=== PATIENT | female | born 1985 | race African-American/Black ===

== ENCOUNTER 2017-06-23 18:12 | Inpatient (IN) | payer MEDICAID ==
[~2017-06-23] VITALS: Ht 162.6 cm; Wt 83.0 kg
[2017-06-23 19:17] LABS: CLARITY URINE CLOUDY (CLEAR); COLOR URINE DARK YELLOW (YELLOW); GLUCOSE URINE NEGATIVE (NEGATIVE); KETONES URINE NEGATIVE (NEGATIVE); LEUKOCYTE ESTERASE URINE 1+ (NEGATIVE); NITRITE URINE NEGATIVE (NEGATIVE); OCCULT BLOOD URINE 2+ (NEGATIVE); PH URINE 6.5 (4.5-8.0); PROTEIN URINE 1+ (NEGATIVE); SPECIFIC GRAVITY URINE 1.024 (1.005-1.030)
[2017-06-23 19:37] LABS: BASOPHILS % 0.3 % (0.0-2.0); EOSINOPHILS % 0.5 % (0.0-5.0); HEMATOCRIT. 32.5 % (36.0-48.0); HEMOGLOBIN. 11.1 g/dL (12.0-16.0); LYMPHOCYTES % 22.7 % (20.0-50.0); MEAN CORPUSCULAR HEMOGLOBIN 30.2 pg (28.0-32.0); MONOCYTES % 11.5 % (2.0-8.0); PLATELET 165 x1000/uL (130-400); RED CELL DISTRIBUTION WIDTH 13.5 % (11.6-14.6)
[2017-06-23 19:41] LABS: D-DIMER 2.89 mg/L FEU (<0.50); PARTIAL THROMBOPLASTIN TIME 27.5 sec (23.4-31.0)
[2017-06-23 19:48] LABS: CARBON DIOXIDE 25 mEq/L (21-32); CHLORIDE 107 mEq/L (98-107)
[2017-06-23 19:57] LABS: CLARITY URINE CLEAR (CLEAR); COLOR URINE YELLOW (YELLOW); GLUCOSE URINE NEGATIVE (NEGATIVE); KETONES URINE NEGATIVE (NEGATIVE); LEUKOCYTE ESTERASE URINE NEGATIVE (NEGATIVE); NITRITE URINE NEGATIVE (NEGATIVE); OCCULT BLOOD URINE NEGATIVE (NEGATIVE); PH URINE 6.5 (4.5-8.0); PROTEIN URINE 1+ (NEGATIVE); SPECIFIC GRAVITY URINE 1.017 (1.005-1.030)
[2017-06-23 20:10] LABS: *AMPHETAMINES SCREEN URINE NEGATIVE (NEGATIVE); *BARBITURATES SCREEN URINE NEGATIVE (NEGATIVE); *BENZODIAZEPINES SCREEN URINE NEGATIVE (NEGATIVE); *COCAINE SCREEN URINE NEGATIVE (NEGATIVE); CANNABINOID URINE SCREEN NEGATIVE (NEGATIVE); METHADONE URINE SCREEN NEGATIVE (NEGATIVE); OPIATES URINE SCREEN NEGATIVE (NEGATIVE); PHENCYCLIDINE URINE SCREEN NEGATIVE (NEGATIVE)
[2017-06-23] MEDS ORDERED: NALOXONE HCL 0.4 MG/ML 1ML VIAL IM PRN (20:30)
[2017-06-23] MEDS ORDERED: LIDOCAINE HCL 1% 20ML VIAL (Pyxis) INJ INFIL SCH (20:30)
[2017-06-23] MEDS ORDERED: CARBOPROST TROMETHAMINE 250 MCG/ML AMPUL IM PRN (20:30)
[2017-06-23] MEDS ORDERED: METHYLERGONOVINE MALEATE 0.2 MG/ML IM PRN (20:30)
[2017-06-23] MEDS ORDERED: BUTORPHANOL TARTRATE 2 MG/ML VIAL IV PRN (20:30)
[2017-06-23] MEDS ORDERED: MAGNESIUM 4 G PREMIX 100 ML IV SCH (20:45)
[2017-06-23] MEDS ORDERED: MAGNESIUM 2 G PREMIX 50 ML IV SCH (20:45)
[2017-06-23] MEDS: LACTATED RINGERS 1,000 ML IV SCH (20:50)
[2017-06-23] MEDS ORDERED: PENICILLIN G POTASSIUM 5 MMU in DEXT 5% WATER 100 ML IV SCH (21:00)
[2017-06-23] MEDS: MAGNESIUM 20 G PREMIX (L & D) 500 ML IV SCH (21:38)
[2017-06-23] MEDS: DEXT 5%/LR + PITOCIN 20UNITS/L 1,000 ML IV SCH (21:40)
[2017-06-23 21:42] LABS: HEPATITIS B SURFACE ANTIGEN NEGATIVE; RUBELLA IGG 8.9 IU/mL (4.99-10)
[2017-06-24] MEDS: PENICILLIN G POTASSIUM 2.5 MMU in DEXTROSE 5% WATER 50 ML IV SCH ×4 (02:01→15:36)
[2017-06-24] MEDS: MAGNESIUM 20 G PREMIX (L & D) 500 ML IV SCH ×2 (09:20→17:44)
[2017-06-24] MEDS: LACTATED RINGERS 1,000 ML IV SCH (17:09)
[2017-06-24] MEDS ORDERED: FENTANYL CITRATE/PF 50MCG/ML 2ML VIAL ONE ×2 (17:21→22:34)
[2017-06-24] MEDS ORDERED: BUPIVACAINE HCL/PF 0.25% (2.5MG/ML) 10ML ONE ×2 (17:23→22:36)
[2017-06-24] MEDS ORDERED: BUPIVACAINE HCL/NS/PF EPIDURAL 100 ML EP ONE ×2 (17:23→22:35)
[2017-06-24] MEDS ORDERED: BUPIVACAINE HCL/NS/PF EPIDURAL 100 ML EP SCH (18:00)
[2017-06-24] MEDS ORDERED: ONDANSETRON HCL 4MG/2ML VIAL IV PRN (18:00)
[2017-06-24] MEDS ORDERED: DIPHENHYDRAMINE 50MG/ML VIAL IM PRN (18:00)
[2017-06-25] MEDS: PENICILLIN G POTASSIUM 2.5 MMU in DEXTROSE 5% WATER 50 ML IV SCH ×2 (01:36→04:52)
[2017-06-25] MEDS: DEXT 5%/LR + PITOCIN 20UNITS/L 1,000 ML IV SCH ×3 (01:37→17:38)
[2017-06-25] MEDS: MAGNESIUM 20 G PREMIX (L & D) 500 ML IV SCH (03:59)
[2017-06-25] MEDS ORDERED: FENTANYL CITRATE/PF 50MCG/ML 2ML VIAL ONE (04:45)
[2017-06-25] MEDS ORDERED: BUPIVACAINE HCL/NS/PF EPIDURAL 100 ML EP ONE (04:45)
[2017-06-25] MEDS ORDERED: MISOPROSTOL 200MCG TABLET ONE (06:00)
[2017-06-25] MEDS ORDERED: MAGNESIUM 20 G PREMIX (L & D) 500 ML IV SCH (06:30)
[2017-06-25] MEDS ORDERED: BENZOCAINE/LANOLIN/ALOE VERA SPRAY TOP PRN (06:30)
[2017-06-25] MEDS ORDERED: DIPHENHYDRAMINE 25MG CAPSULE PO PRN (06:30)
[2017-06-25] MEDS ORDERED: HEMORRHOIDAL SUPP PR PRN (06:30)
[2017-06-25] MEDS ORDERED: IBUPROFEN 400MG TABLET PO PRN (06:30)
[2017-06-25] MEDS ORDERED: LANOLIN OINT 0.25 GM TUBE TOP PRN (06:30)
[2017-06-25] MEDS ORDERED: BISACODYL 10MG SUPP PR PRN (06:30)
[2017-06-25] MEDS ORDERED: GLYCERIN/WITCH HAZEL LEAF MEDICATED PAD TOP PRN (06:30)
[2017-06-25] MEDS ORDERED: ACETAMINOPHEN WITH CODEINE 300/30MG TABLET PO PRN ×2 (06:30)
[2017-06-25] MEDS ORDERED: LABETALOL HCL 200MG TABLET PO SCH (09:00)
[2017-06-25] MEDS: METRONIDAZOLE 500MG TABLET PO SCH ×2 (09:00→21:46)
[2017-06-25 12:00] VITALS: BP 131/87
[2017-06-25 12:30] VITALS: BP 128/79
[2017-06-25 16:00] VITALS: BP 124/67
[2017-06-25] MEDS: LABETALOL HCL 200MG TABLET PO SCH (16:55)
[2017-06-25 20:40] VITALS: BP 113/68
[2017-06-25] MEDS: DOCUSATE SODIUM 100MG CAPSULE PO SCH (21:41)
[2017-06-26 01:02] VITALS: BP 134/85
[2017-06-26] MEDS: LABETALOL HCL 200MG TABLET PO SCH ×4 (01:02→23:52)
[2017-06-26 04:45] VITALS: BP 120/78
[2017-06-26 07:04] LABS: BASOPHILS % 0.2 % (0.0-2.0); EOSINOPHILS % 0.4 % (0.0-5.0); HEMATOCRIT. 30.3 % (36.0-48.0); HEMOGLOBIN. 10.2 g/dL (12.0-16.0); MEAN CORPUSCULAR VOLUME 89.5 fL (81.0-99.0); MEAN PLATELET VOLUME 10.2 fl (7.4-10.4); MONOCYTES % 8.3 % (2.0-8.0); NEUTROPHILS % 77.1 % (40.0-76.0); PLATELET 158 x1000/uL (130-400); RED BLOOD CELL COUNT 3.39 mill/uL (4.2-5.4); RED CELL DISTRIBUTION WIDTH 13.9 % (11.6-14.6)
[2017-06-26 08:20] VITALS: BP 111/62
[2017-06-26] MEDS: PRENATAL VIT/FE FUMARATE/FA TABLET PO SCH (08:39)
[2017-06-26] MEDS: FERROUS SULFATE 325MG TABLET PO SCH ×2 (08:39→16:42)
[2017-06-26] MEDS ORDERED: TETANUS, DIPHTHERIA, PERTUSSIS VAC/PF 0.5ML (>7YR OLD) IM ONE (09:00)
[2017-06-26 16:15] VITALS: BP 137/82
[2017-06-26 19:30] VITALS: BP 127/86
[2017-06-26] MEDS: DOCUSATE SODIUM 100MG CAPSULE PO SCH (21:00)
[2017-06-27] VITALS: BP 113/61
[2017-06-27 07:45] VITALS: BP 125/64
[2017-06-27] MEDS: FERROUS SULFATE 325MG TABLET PO SCH (08:20)
[2017-06-27] MEDS: PRENATAL VIT/FE FUMARATE/FA TABLET PO SCH (08:20)
[2017-06-27] MEDS: LABETALOL HCL 200MG TABLET PO SCH (08:21)
== END 2017-06-27 13:30 | disposition home or self-care (01) | DRG 560 ==
LOC: L&D 18:12 → OBSVTOIN 18:12 → 7EST PP/OB 06-25 12:12
PROVIDERS: ADMIT Specialist; ATTEND Specialist
PROC: 10E0XZZ Delivery of Products of Conception, External Approach (ICD-10-PCS; principal; 2017-06-26)
PROC: 3E0S3CZ (ICD-10-PCS; 2017-06-26)
PROC: 00HU33Z Insertion of Infusion Device into Spinal Canal, Percutaneous Approach (ICD-10-PCS; 2017-06-26)
DX: O13.4 Gestational [pregnancy-induced] hypertension without significant proteinuria, complicating childbirth (principal); E87.6 Hypokalemia; D64.9 Anemia, unspecified; O99.02 Anemia complicating childbirth; O99.284 Endocrine, nutritional and metabolic diseases complicating childbirth; O99.824 Streptococcus B carrier state complicating childbirth; O69.81X0 Labor and delivery complicated by cord around neck, without compression, not applicable or unspecified; Z30.2 Encounter for sterilization; Z3A.37 37 weeks gestation of pregnancy; Z37.0 Single live birth; Z82.49 Family history of ischemic heart disease and other diseases of the circulatory system; Z82.5 Family history of asthma and other chronic lower respiratory diseases
CPT/HCPCS: 36415; 80053; 80305; 81001; 83735; 84156; 84550; 85025; 85379; 85384; 85610; 85730; 86592; 86703; 86762; 86850; 86900; 87340; 88307; 90715; 99281; J1200; J2540; J2590; J3010; J3475; J3490; J7060; J7120; A4315